=== PATIENT | male | born 1970 | race Caucasian/White ===

== ENCOUNTER 2019-01-12 01:07 | Emergency (ER) | payer OTHER ==
[~2019-01-12] VITALS: Ht 162.6 cm; Wt 75.3 kg
[~2019-01-12 01:07] MED LIST: NABUMETONE500 MG PO; PERCOCET 5/3251 TAB PO
[2019-01-12] MEDS ORDERED: KETO10TA2 PO (07:46)
== END 2019-01-12 13:43 ==
LOC: ER 01:07
DX: N20.0 Calculus of kidney (principal); R11.0 Nausea; R10.84 Generalized abdominal pain

== ENCOUNTER 2019-02-15 21:12 | Emergency (ER) | payer OTHER ==
[~2019-02-15] VITALS: Ht 162.6 cm; Wt 72.6 kg
[~2019-02-15 21:12] MED LIST changes: +KETO10TA2 PO
== END 2019-02-16 00:34 | disposition home or self-care (01) ==
LOC: ER 21:12
DX: N20.1 Calculus of ureter (principal); R10.31 Right lower quadrant pain; K44.9 Diaphragmatic hernia without obstruction or gangrene; K42.9 Umbilical hernia without obstruction or gangrene

== ENCOUNTER 2020-04-27 06:22 | Outpatient (CLI) | payer OTHER | END 2020-04-27 15:00 | disposition home or self-care (01) | LOC: LAB 06:22 | PROVIDERS: ATTEND Urology | DX: Z20.828 Contact with and (suspected) exposure to other viral communicable diseases (principal); N20.1 Calculus of ureter ==

== ENCOUNTER 2020-05-09 09:42 | Outpatient (CLI) | payer OTHER | END 2020-05-09 14:00 | disposition home or self-care (01) | LOC: RAD 09:42 | PROVIDERS: ATTEND Urology | DX: N20.0 Calculus of kidney (principal) ==

== ENCOUNTER 2020-06-17 07:08 | Outpatient (CLI) | payer OTHER | END 2020-06-17 07:20 | disposition home or self-care (01) | LOC: LAB 07:08 | PROVIDERS: ATTEND Urology | DX: N30.00 Acute cystitis without hematuria (principal); N20.0 Calculus of kidney ==

== ENCOUNTER → 2020-06-20 09:33 | Outpatient (CLI) | payer OTHER | END | disposition home or self-care (01) | LOC: LAB 09:33 | PROVIDERS: ATTEND Urology | DX: N20.0 Calculus of kidney (principal) ==